=== PATIENT | male | born 1960 | race Caucasian/White ===

== ENCOUNTER 2016-07-09 13:43 | Emergency (ER) | payer BC ==
[2016-07-09 14:40] VITALS: BP 127/69
--- NOTE | 2016-07-09 15:06 | UC ---
Respiratory Complaint HPI - HPI Summary HPI Summary: Pt presents with c/o cough, chest congestion, nasal congestion and generalized fatigue X 2 weeks. - History of Current Complaint Chief Complaint: UCRespiratory Stated Complaint: COUGH,CHEST CONGESTION Time Seen by Provider: 07/09/16 14:57 Hx Obtained From: Patient Onset/Duration: Gradual Onset, Lasting Weeks - 2 weeks Timing: Constant Severity Initially: Mild Severity Currently: Mild Character: Cough: Nonproductive Aggravating Factors: Exertion, Recumbent Position Alleviating Factors: Nothing Associated Signs And Symptoms: Positive: URI, Nasal Congestion - Risk Factors Pulmonary Embolism Risk Factors: Negative Cardiac Risk Factors: Negative - Allergies/Home Medications Allergies/Adverse Reactions: Allergies Allergy/AdvReac Type Severity Reaction Status Date / Time No Known Allergies Allergy Verified 07/09/16 14:39 Home Medications: Home Medications Ibuprofen TAB* [Advil TAB*] 400 mg PO Q8H PRN 07/09/16 [History Confirmed ] Zolpidem CR (NF) [Ambien CR (NF)] 12.5 mg PO DAILY 07/09/16 [History Confirmed 07/09/16] guaiFENesin ER TAB [Mucinex*] 600 mg PO BID 07/09/16 [History Confirmed 07/09/16 ] PMH/Surg Hx/FS Hx/Imm Hx Previously Healthy: Yes Endocrine History Of: Denies: Diabetes Cardiovascular History Of: Denies: Hypertension, Pacemaker/ICD, Congestive Heart Failure GI/ History Of: Denies: Renal Disease - Surgical History Surgical History: Yes Surgery Procedure, Year, and Place: HEMORRHOIDECTOMY - Family History Known Family History: Positive: Other - positive [facility] for URI - Social History Alcohol Use: None Substance Use Type: None Smoking Status (MU): Never Smoked Tobacco Have You Smoked in the Last Year: No Review of Systems Constitutional: Fatigue Skin: Negative Eyes: Negative ENT: Other - nnasal congestion Respiratory: Cough Cardiovascular: Negative Gastrointestinal: Negative Genitourinary: Negative Motor: Negative Neurovascular: Negative Musculoskeletal: Negative Neurological: Negative Psychological: Negative All Other Systems Reviewed And Are Negative: Yes Physical Exam Triage Information Reviewed: Yes Appearance: Well-Appearing Vital Signs: Initial Vital Signs Temp 98.3 F 07/09/16 14:35 Pulse 86 07/09/16 14:35 Resp 18 07/09/16 14:35 BP 127/69 07/09/16 14:35 Pulse Ox 98 07/09/16 14:35 Vital Signs Reviewed: Yes ENT Exam: Other ENT: Positive: Nasal congestion, TM bulging - bilateral Neck exam: Normal Respiratory Exam: Normal Cardiovascular Exam: Normal Musculoskeletal Exam: Normal Neurological Exam: Normal Psychological Exam: Normal Skin Exam: Normal UC Diagnostic Evaluation - Laboratory O2 Sat by Pulse Oximetry: 98 Respiratory Course/Dx - Differential Dx/Diagnosis Differential Diagnosis/HQI/PQRI: Bronchitis, Other - allergic rhinitis Provider Diagnoses: Bronchitis. Allergic Rhinitis Discharge - Discharge Plan Condition: Stable Disposition: HOME Prescriptions: Azithromycin TAB* [Zithromax TAB (Z-GARFIELD) 250 mg #6 tabs] 2 tab PO .TODAY, THEN 1 DAILY #1 garfield Loratadine [Claritin 10 MG CAP] 10 mg PO DAILY #14 cap Patient Education Materials: Acute Bronchitis (ED), Allergic Rhinitis (ED) Referrals: Derek Norwood MD [Primary Care Provider] - If Needed
== END 2016-07-09 15:22 | disposition home or self-care (01) ==
LOC: UCCORT 13:43
DX: J40 Bronchitis, not specified as acute or chronic (principal); J30.9 Allergic rhinitis, unspecified
CPT/HCPCS: 99212; G0463

== ENCOUNTER 2017-02-12 16:17 | Emergency (ER) | payer BC ==
[2017-02-12 16:30] VITALS: BP 139/84
--- NOTE | 2017-02-12 17:21 | UC ---
Throat Pain/Nasal William HPI - HPI Summary HPI Summary: ONE WEEK OF WORSENING SORE THROAT, FATIGUE, NO FEVER. NO RASHES. NO ABDOMINAL PAIN. NO N/V NO CONSTIPATION OR DIARHEA. - History of Current Complaint Chief Complaint: UCRespiratory Stated Complaint: COUGH/CONGESTION Time Seen by Provider: 02/12/17 16:32 Hx Obtained From: Patient Onset/Duration: Gradual Onset, Lasting Weeks Severity: Moderate Pain Intensity: 8 Pain Scale Used: 0-10 Numeric Cough: Nonproductive Associated Signs & Symptoms: Positive: Hoarseness - Allergies/Home Medications Allergies/Adverse Reactions: Allergies Allergy/AdvReac Type Severity Reaction Status Date / Time nuts Allergy Mild See Comment Uncoded 02/12/17 16:30 PMH/Surg Hx/FS Hx/Imm Hx Previously Healthy: Yes - Surgical History Surgical History: Yes Surgery Procedure, Year, and Place: HEMORRHOIDECTOMY - Family History Known Family History: Positive: Other - positive [facility] for URI - Social History Occupation: Employed Full-time Lives: With Family Alcohol Use: None Substance Use Type: None Smoking Status (MU): Never Smoked Tobacco Have You Smoked in the Last Year: No Review of Systems Constitutional: Fatigue Skin: Negative Eyes: Negative ENT: Sore Throat Respiratory: Cough Cardiovascular: Negative Gastrointestinal: Negative Genitourinary: Negative Motor: Negative Neurovascular: Negative Musculoskeletal: Myalgia Neurological: Negative Psychological: Negative Is Patient Immunocompromised?: No All Other Systems Reviewed And Are Negative: Yes Physical Exam Triage Information Reviewed: Yes Appearance: No Pain Distress, Well-Nourished, Ill-Appearing Vital Signs: Initial Vital Signs Temp 98 F 02/12/17 16:27 Pulse 89 02/12/17 16:27 Resp 16 02/12/17 16:27 BP 139/84 02/12/17 16:27 Pulse Ox 98 02/12/17 16:27 Vital Signs Reviewed: Yes Eye Exam: Normal ENT: Positive: Hearing grossly normal, Pharyngeal erythema, TMs normal Dental Exam: Normal Neck exam: Normal Neck: Positive: Supple, Nontender, No Lymphadenopathy Respiratory Exam: Normal Respiratory: Positive: Chest non-tender, Lungs clear, Normal breath sounds, No respiratory distress, No accessory muscle use Cardiovascular Exam: Normal Cardiovascular: Positive: RRR, No Murmur, Pulses Normal, Brisk Capillary Refill Abdominal Exam: Normal Abdomen Description: Positive: Nontender, No Organomegaly Musculoskeletal Exam: Normal Musculoskeletal: Positive: Strength Intact, ROM Intact Neurological Exam: Normal Psychological Exam: Normal Skin Exam: Normal Throat Pain/Nasal Course/Dx - Differential Dx/Diagnosis Differential Diagnosis/HQI/PQRI: Influenza, Mononucleosis, Pharyngitis, Sinusitis, Tonsillitis, URI Provider Diagnoses: PHARYNGITIS; VIRAL SYNDROME Discharge - Discharge Plan Condition: Stable Disposition: HOME Patient Education Materials: Pharyngitis (ED), Viral Syndrome (ED) Forms: *Work Release Referrals: Derek Norwood MD [Primary Care Provider] - Additional Instructions: PLEASE SEEK CARE AT EMERGENCY DEPARTMENT FOR CONTINUED EVALUATION IF CONDITION WORSENS OR IF NEW SYMPTOMS PRESENT.
== END 2017-02-12 17:05 | disposition home or self-care (01) ==
LOC: UCCORT 16:17
DX: J02.9 Acute pharyngitis, unspecified (principal); B34.9 Viral infection, unspecified
CPT/HCPCS: 87651; 99211; G0463

== ENCOUNTER 2017-04-15 13:00 | Emergency (ER) | payer BC ==
[2017-04-15 14:12] VITALS: BP 129/86
--- NOTE | 2017-04-15 14:42 | UC ---
FLU HPI - HPI Summary HPI Summary: Had flu sx last 7-10 days that has now resolved but then developed this deep bronchial cough - History of Current Complaint Chief Complaint: UCGeneralIllness Stated Complaint: CHEST CONGESTION, COUGH Time Seen by Provider: 04/15/17 14:38 Hx Obtained From: Patient Onset/Duration: Gradual Onset, Lasting Days Severity Currently: Mild Severity Initially: Mild Pain Intensity: 2 Pain Scale Used: 0-10 Numeric Associated Signs & Symptoms: Positive: Myalgia, Cough Related Hx: Possible Flu/Infectious Exposure - Allergy/Home Medications Allergies/Adverse Reactions: Allergies Allergy/AdvReac Type Severity Reaction Status Date / Time "Sometimes Nuts" Allergy "Eyes Uncoded 04/15/17 14:08 Water, Nasal Congestion, and Burning" PMH/Surg Hx/FS Hx/Imm Hx Previously Healthy: Yes Psychological History: Other Other Psychological History: Insomnia - Surgical History Surgical History: Yes Surgery Procedure, Year, and Place: HEMORRHOIDECTOMY - Family History Known Family History: Positive: Other - positive [facility] for URI - Social History Occupation: Employed Full-time Lives: With Family Alcohol Use: None Substance Use Type: None Smoking Status (MU): Never Smoked Tobacco Have You Smoked in the Last Year: No Review of Systems Constitutional: Negative Skin: Negative Eyes: Negative ENT: Negative Respiratory: Cough Cardiovascular: Negative Gastrointestinal: Negative Genitourinary: Negative Motor: Negative Neurovascular: Negative Musculoskeletal: Negative Neurological: Negative Psychological: Negative Is Patient Immunocompromised?: No All Other Systems Reviewed And Are Negative: Yes Physical Exam Triage Information Reviewed: Yes Appearance: No Pain Distress, Well-Nourished, Ill-Appearing - mild Vital Signs: Initial Vital Signs Temp 98.9 F 04/15/17 14:04 Pulse 92 04/15/17 14:04 Resp 18 04/15/17 14:04 BP 129/86 04/15/17 14:04 Pulse Ox 98 04/15/17 14:04 Vital Signs Reviewed: Yes Eye Exam: Normal Eyes: Positive: Conjunctiva Clear ENT Exam: Normal ENT: Positive: Normal ENT inspection, Hearing grossly normal, Pharynx normal, TMs normal, Uvula midline. Negative: Nasal congestion, Tonsillar swelling, Tonsillar exudate, Trismus, Muffled voice, Hoarse voice, Dental tenderness, Sinus tenderness Dental Exam: Normal Neck exam: Normal Neck: Positive: Supple, Nontender Respiratory Exam: Normal Respiratory: Positive: Chest non-tender, Lungs clear, Normal breath sounds, No respiratory distress, No accessory muscle use Cardiovascular Exam: Normal Cardiovascular: Positive: RRR, No Murmur, Pulses Normal, Brisk Capillary Refill Musculoskeletal Exam: Normal Musculoskeletal: Positive: Strength Intact, ROM Intact, No Edema Neurological Exam: Normal Neurological: Positive: Alert, Muscle Tone Normal Psychological Exam: Normal Skin Exam: Normal Diagnostics - Laboratory Diagnostic Studies Completed/Ordered: Influenza A (+) Flu Course/Dx - Course Course Of Treatment: increase fluids rest tylenol ibuprofen for pain, zithromax , robitussin and codiene follow with pcp - Differential Dx/Diagnosis Provider Diagnoses: Influenza A ,seconday Bronchitis Discharge - Discharge Plan Condition: Stable Disposition: HOME Prescriptions: Azithromycin TAB* [Zithromax TAB (Z-GARFIELD) 250 mg #6 tabs] 2 tab PO .TODAY, THEN 1 DAILY #1 [place] guaiFENesin/CODIEN 100MG-10MG* [Robitussin AC 100Mg-10Mg*] 5 - 10 ml PO Q4H PRN #120 ml MDD 60 PRN Reason: cough/chest congestion Patient Education Materials: Influenza (ED), Acute Bronchitis (ED) Referrals: Derek Norwood MD [Primary Care Provider] - 5 Days
== END 2017-04-15 15:05 | disposition home or self-care (01) ==
LOC: UCCORT 13:00
DX: J10.1 Influenza due to other identified influenza virus with other respiratory manifestations (principal); Z91.018 Allergy to other foods; G47.00 Insomnia, unspecified
CPT/HCPCS: 87502; 99212; G0463

== ENCOUNTER 2018-02-18 10:11 | Emergency (ER) | payer BC ==
[2018-02-18 10:22] VITALS: BP 164/83
[2018-02-18] MEDS ORDERED: Albuterol/Ipratropium NEB.SOL* Albuterol 2.5 MG/Ipratropium 0.5 MG 3 ML INH ONE (10:31)
--- NOTE | 2018-02-18 10:50 | ED ---
Respiratory - HPI Summary HPI Summary: 57 yr old male with the complaint of shortness of breath. Onset of symptoms was this morning. The patient was having runny nose, cold symptoms since Sunday, and he returned from [place] yesterday. The patient has a brother who also has cold symptoms. The patient reports that this morning he is coughing up green sputum, his symptoms are associated with increased SOB. His symptoms are moderate in intensity. Made worse with laying supine. He denies fever or chills. Denies pleuritic chest pain. He reports he does feel tight in the chest. He has no radiation of tightness into arms or neck. He denies history of heart or lung disease. His father did have CHF. The patient is a non smoker. - History of Current Complaint Chief Complaint: UCRespiratory Stated Complaint: SOB,CONGESTION,COUGH Time Seen by Provider: 02/18/18 10:22 Pain Intensity: 0 - Allergy/Home Medications Allergies/Adverse Reactions: Allergies Allergy/AdvReac Type Severity Reaction Status Date / Time "Sometimes Nuts" Allergy "Eyes Uncoded 02/18/18 10:17 Water, Nasal Congestion, and Burning" PMH/Surg Hx/FS Hx/Imm Hx Endocrine/Hematology History: Denies: Hx Diabetes, Hx Systemic Lupus Erythematosus Cardiovascular History: Denies: Hx Congestive Heart Failure, Hx Hypertension, Hx Pacemaker/ICD GI History: Comment Only: Other GI Disorders - abd pain after eating and lying down, awakens at night x 6 months History: Denies: Hx Dialysis, Hx Renal Disease Musculoskeletal History: Denies: Hx Rheumatoid Arthritis Sensory History: Denies: Hx Hearing Aid Psychiatric History: Denies: Hx Panic Disorder - Cancer History Hx Chemotherapy: No - Surgical History Surgery Procedure, Year, and Place: HEMORRHOIDECTOMY Infectious Disease History: No Infectious Disease History: Denies: Hx Clostridium Difficile, Hx Hepatitis, Hx Human Immunodeficiency Virus (HIV), Hx of Known/Suspected MRSA, Hx Shingles, Hx Tuberculosis, Hx Known/ Suspected VRE, Hx Known/Suspected VRSA, History Other Infectious Disease, Traveled Outside the [place] in Last 30 Days - Family History Known Family History: Positive: Other - positive [facility] for URI - Social History Occupation: Employed Full-time Lives: With Family Alcohol Use: None Substance Use Type: Reports: None Smoking Status (MU): Never Smoked Tobacco Have You Smoked in the Last Year: No Review of Systems Constitutional: Negative Positive: Nasal Discharge Positive: Shortness Of Breath, Cough All Other Systems Reviewed And Are Negative: Yes Physical Exam Triage Information Reviewed: Yes Vital Signs On Initial Exam: Initial Vitals Temp Pulse Resp BP Pulse Ox 97.3 F 107 22 164/83 94 02/18/18 10:19 02/18/18 10:19 02/18/18 10:19 02/18/18 10:19 02/18/18 10:19 Vital Signs Reviewed: Yes Appearance: Positive: Well-Appearing, No Pain Distress Skin: Positive: Warm, Skin Color Reflects Adequate Perfusion Head/Face: Positive: Normal Head/Face Inspection Eyes: Positive: EOMI ENT: Positive: Nasal congestion, Nasal drainage, TMs normal Neck: Positive: Nontender Respiratory/Lung Sounds: Positive: Decreased Breath Sounds. Negative: Rales, Rhonchi Cardiovascular: Positive: RRR. Negative: Murmur Abdomen Description: Positive: Nontender Musculoskeletal: Positive: Strength/ROM Intact Neurological: Positive: Sensory/Motor Intact, Alert, Oriented to Person Place, Time, CN Intact II-III, Normal Gait Psychiatric: Positive: Normal - [place] Coma Scale Best Eye Response: 4 - Spontaneous Best Motor Response: 6 - Obeys Commands Best Verbal Response: 5 - Oriented Coma Scale Total: 15 Diagnostics - Vital Signs Vital Signs Temp Pulse Resp BP Pulse Ox 02/18/18 10:19 97.3 F 107 22 164/83 94 - Laboratory Lab Statement: Any lab studies that have been ordered have been reviewed, and results considered in the medical decision making process. - Radiology chest pa/lat Radiology Interpretation Completed By: Radiologist - Hyperinflation. - EKG 02/18/18 Cardiac Rate: NL EKG Rhythm: Sinus Rhythm ST Segment: Normal Ectopy: None Summary of EKG Findings: NSR rate 98, no stemi. Re-Evaluation - Re-Evaluation First Eval Re-Evaluation Time: 11:24 Change: Improved Comment: The patient reports significant improvement of symptoms with the nebulizer treatment and walking to xray and back after the treatment he noticed marked impromement. Disposition - Course Course Of Treatment: 57 yr old with sinus, cold symptoms, coughing and sob relieved with neb. Will rx with prednisone, biaxin and albuterol MDI. He will follow up with his PMD for his BP and his acute respiratory illness. - Diagnoses Provider Diagnoses: Sinusitis, Acute bronchitis, Hypertension Discharge - Sign-Out/Discharge Documenting (check all that apply): Patient Departure All imaging exams completed and their final reports reviewed: Yes - Discharge Plan Condition: Good Disposition: HOME Prescriptions: Albuterol HFA INHALER* [Ventolin HFA Inhaler*] 1 - 2 puff INH Q6H PRN #1 mdi PRN Reason: Cough Clarithromycin TAB* [Biaxin 500 MG TAB*] 500 mg PO BID #20 tab predniSONE TAB* [Deltasone 20 MG TAB*] 40 mg PO DAILY #10 tab Patient Education Materials: Acute Bronchitis (ED), Sinusitis (ED), Hypertension (ED) Referrals: Derek Norwood MD [Primary Care Provider] - 2 Days - Billing Disposition and Condition Condition: GOOD Disposition: Home
== END 2018-02-18 11:34 | disposition home or self-care (01) ==
LOC: UCCORT 10:11
DX: J32.9 Chronic sinusitis, unspecified (principal); J20.9 Acute bronchitis, unspecified; I10 Essential (primary) hypertension; Z82.49 Family history of ischemic heart disease and other diseases of the circulatory system
CPT/HCPCS: 71046; 93005; 99212; A9270-GY; G0463